=== PATIENT | female | born 1940 | race Caucasian/White ===

== ENCOUNTER 2018-06-18 13:02 | Inpatient (IN) | payer MEDICAID ==
[2018-06-18 14:01] LABS: MODE ROOM AIR; MetHgb Venous 0.2 %; Sample Type Blood venous; Site VENOUS LINE; Venous COHb 0.7 %; Venous Fraction OxyHgb 54.3 %; Venous Oxygen Sat 54.8 mmHG (55.0-75.0); Venous Total Hemglobin 11.5 g/dl
[2018-06-18] MEDS: SOD CHLORIDE 0.9% 780 ML IV (14:06)
[2018-06-18 14:07] LABS: ADD MAN DIFF? NO
[2018-06-18 14:09] LABS: BASOPHIL # 0.1 10^3/ul (0.0-0.1); BASOPHILS % 0.5 % (0.0-2.0); EOSINOPHILS # 0.2 10^3/ul (0.0-0.5); EOSINOPHILS % 1.9 % (0.0-7.0); HEMATOCRIT 31.6 % (37.0-47.0); HEMOGLOBIN 10.4 g/dl (12.0-16.0); LYMPHOCYTES # 3.9 10^3/ul (0.8-2.9); MEAN CORPUSCULAR HGB CONC 32.9 g/dl (32.0-37.0); MEAN CORPUSCULAR VOLUME 85.2 fl (82.0-101.0); MEAN PLATELET VOLUME 12.5 fl (7.4-10.4); MONOCYTES % 10.1 % (0.0-11.0); NEUTROPHIL # 4.8 10^3/ul (1.6-7.5); NEUTROPHILS % 48.1 % (39.0-77.0); PLATELET COUNT 179 10^3/UL (140-415); RED BLOOD COUNT 3.71 10^6/ul (4.20-5.40); RED CELL DISTRIBUTION WIDTH 12.8 % (11.5-14.5)
[2018-06-18 14:26] LABS: ADD UMIC YES; UR ASCORBIC ACID 20 mg/dL (NEGATIVE); UR BACTERIA FEW /HPF (NONE SEEN); UR BILIRUBIN (Dip) NEGATIVE (NEGATIVE); UR BLOOD (Dip) NEGATIVE (NEGATIVE); UR CLARITY SLIGHTLY CLOUDY (CLEAR); UR COLOR YELLOW (YELLOW); UR GLUCOSE (Dip) 3+ mg/dL (NEGATIVE); UR KETONES (Dip) NEGATIVE (NEGATIVE); UR LEUKOCYTE ESTERASE (Dip) 1+ Leu/ul (NEGATIVE); UR MUCUS FEW /HPF (NONE SEEN); UR NITRITE (Dip) NEGATIVE (NEGATIVE); UR RBC 2 /HPF (0-5); UR SQUAMOUS EPITHELIAL CELL FEW /HPF (FEW); UR TOTAL PROTEIN (Dip) 2+ mg/dl (NEGATIVE); UR UROBILINOGEN (Dip) NEGATIVE (NEGATIVE); UR WBC 15 /HPF (0-5)
[2018-06-18 14:28] LABS: INR 0.88; PT RATIO 0.9
[2018-06-18 14:29] LABS: PARTIAL THROMBOPLASTIN TIME 24.1 Sec (23.0-35.0)
[2018-06-18 14:30] LABS: HEMOGLOBIN A1C 13.3 % (0-5.9)
[2018-06-18 14:30] LABS: ALANINE AMINOTRANSFERASE 14 IU/L (13-69); ALBUMIN/GLOBULIN RATIO 0.95; ALKALINE PHOSPHATASE 104 IU/L (42-121); ANION GAP 10 (5-13); ASPARTATE AMINO TRANSFERASE 24 IU/L (15-46); BLOOD UREA NITROGEN 38 mg/dl (7-20); CALCIUM 9.8 mg/dl (8.4-10.2); CARBON DIOXIDE 31 mmol/L (21-31); CHLORIDE 101 mmol/L (97-110); CHOL/HDL RATIO 4.2 RATIO; CHOLESTEROL 116 mg/dl (100-200); CREATININE 2.42 mg/dl (0.44-1.00); GLUCOSE 281 mg/dl (70-220); HDL CHOLESTEROL 27 mg/dl (33-92); LDL CHOLESTEROL,CALCULATED 48 mg/dl; PHOSPHORUS 3.6 mg/dl (2.5-4.9); POTASSIUM 5.4 mmol/L (3.5-5.1); SODIUM 142 mmol/L (135-144); TOTAL PROTEIN 8.2 g/dl (6.1-8.1); TRIGLYCERIDES 205 mg/dl (0-149)
[2018-06-18 14:40] LABS: TROPONIN-I < 0.012 ng/ml (0.000-0.120)
[2018-06-18 14:44] LABS: AMPHETAMINE/METHAMPHETAMINE Negative (NEGATIVE); BARBITURATES Negative (NEGATIVE); BENZODIAZEPINES Negative (NEGATIVE); CANNABINOIDS Negative (NEGATIVE); COCAINE Negative (NEGATIVE); OPIATES Negative (NEGATIVE)
[2018-06-18] MEDS: ASPIRIN 81 MG TAB PO (15:21)
[2018-06-18] MEDS ORDERED: GLUCOSE GEL 15 GRAM TUBE PO ×2 (16:00)
[2018-06-18] MEDS ORDERED: GLUCOSE GEL 15 GRAM TUBE BUCCAL (16:00)
[2018-06-18] MEDS ORDERED: ACETAMINOPHEN 325 MG TAB PO (16:00)
[2018-06-18] MEDS ORDERED: DEXTROSE 50% 50 ML SYRINGE IV ×2 (16:00)
[2018-06-18] MEDS ORDERED: GLUCAGON 1 MG INJ IM (16:00)
[2018-06-18] MEDS ORDERED: ONDANSETRON 4 MG INJ IV (16:00)
[2018-06-18] MEDS ORDERED: NACL 0.9% 3 ML SYG IV (16:30)
[2018-06-18] MEDS: INSULIN ASPART [NOVOLOG] 3 ML PEN SC ×3 (18:48→20:46)
[2018-06-18] MEDS: ATORVASTATIN 10 MG TAB PO (20:39)
[2018-06-18] MEDS: INSULIN GLARGINE [LANTus] (100 UNITS/ML) SYG SC (20:46)
[2018-06-19 05:53] LABS: ADD MAN DIFF? NO
[2018-06-19 06:02] LABS: WHITE BLOOD COUNT 7.8 10^3/ul (4.8-10.8)
[2018-06-19 06:02] LABS: ABNORMAL IP MESSAGE 1; BASOPHIL # 0.1 10^3/ul (0.0-0.1); BASOPHILS % 0.6 % (0.0-2.0); EOSINOPHILS # 0.2 10^3/ul (0.0-0.5); EOSINOPHILS % 2.4 % (0.0-7.0); HEMATOCRIT 29.2 % (37.0-47.0); HEMOGLOBIN 9.7 g/dl (12.0-16.0); LYMPHOCYTES # 2.9 10^3/ul (0.8-2.9); LYMPHOCYTES % 36.9 % (15.0-51.0); MEAN CORPUSCULAR HGB CONC 33.2 g/dl (32.0-37.0); MEAN CORPUSCULAR VOLUME 84.4 fl (82.0-101.0); MEAN PLATELET VOLUME 13.2 fl (7.4-10.4); MONOCYTE # 0.8 10^3/ul (0.3-0.9); MONOCYTES % 10.7 % (0.0-11.0); NEUTROPHIL # 3.8 10^3/ul (1.6-7.5); NEUTROPHILS % 49.1 % (39.0-77.0); PLATELET COUNT 165 10^3/UL (140-415); RED BLOOD COUNT 3.46 10^6/ul (4.20-5.40)
[2018-06-19 06:23] LABS: ALANINE AMINOTRANSFERASE 13 IU/L (13-69); ALBUMIN 3.3 g/dl (3.3-4.9); ALBUMIN/GLOBULIN RATIO 0.89; ALKALINE PHOSPHATASE 91 IU/L (42-121); ANION GAP 6 (5-13); ASPARTATE AMINO TRANSFERASE 24 IU/L (15-46); BLOOD UREA NITROGEN 30 mg/dl (7-20); CALCIUM 9.3 mg/dl (8.4-10.2); CARBON DIOXIDE 28 mmol/L (21-31); CHLORIDE 104 mmol/L (97-110); CREATININE 1.97 mg/dl (0.44-1.00); GLUCOSE 322 mg/dl (70-220); POTASSIUM 4.6 mmol/L (3.5-5.1); SODIUM 138 mmol/L (135-144)
[2018-06-19 06:26] LABS: POSITIVE DIFF @See below
[2018-06-19 06:38] LABS: IRON 66 ug/dl (35-150)
[2018-06-19 06:42] LABS: CREATININE,URINE RANDOM 36.51 mg/dl (20-320)
[2018-06-19 06:42] LABS: SODIUM,URINE RANDOM 36 mmol/L (30-90)
[2018-06-19 06:47] LABS: % IRON SATURATION 26 % SAT (22-52); TOTAL IRON BINDING CAPACITY 253 ug/dl (241-421)
[2018-06-19 07:07] LABS: HEMOGLOBIN A1C 13.4 % (0-5.9)
[2018-06-19] MEDS: ESCITALOPRAM 10 MG TAB PO (08:06)
[2018-06-19] MEDS: PANTOPRAZOLE SODIUM 20 MG TABEC PO (08:07)
[2018-06-19] MEDS: INSULIN ASPART [NOVOLOG] 3 ML PEN SC ×8 (08:16→23:16)
[2018-06-19] MEDS: ENOXAPARIN 30 MG/0.3 ML SYG SC (08:31)
[2018-06-19] MEDS: hydrALAzine 20 MG INJ IV ×2 (12:53→21:13)
[2018-06-19] MEDS: ATORVASTATIN 10 MG TAB PO (21:12)
[2018-06-19] MEDS: INSULIN GLARGINE [LANTus] (100 UNITS/ML) SYG SC (21:57)
[2018-06-20] MEDS: HYDROCODONE/APAP (5/325) TAB PO (02:34)
[2018-06-20 05:49] LABS: ANION GAP 10 (5-13); BLOOD UREA NITROGEN 30 mg/dl (7-20); CALCIUM 9.2 mg/dl (8.4-10.2); CARBON DIOXIDE 27 mmol/L (21-31); CHLORIDE 101 mmol/L (97-110); CREATININE 2.05 mg/dl (0.44-1.00); GLUCOSE 285 mg/dl (70-220); POTASSIUM 4.5 mmol/L (3.5-5.1); SODIUM 138 mmol/L (135-144)
[2018-06-20] MEDS: PANTOPRAZOLE SODIUM 20 MG TABEC PO (05:55)
[2018-06-20] MEDS: INSULIN ASPART [NOVOLOG] 3 ML PEN SC ×4 (08:00→12:16)
[2018-06-20] MEDS: ESCITALOPRAM 10 MG TAB PO (08:05)
[2018-06-20] MEDS: ENOXAPARIN 30 MG/0.3 ML SYG SC (08:11)
== END 2018-06-20 14:41 | disposition home or self-care (01) | DRG 639 ==
LOC: E/R 13:02 → 6WM 15:33
DX: E11.65 Type 2 diabetes mellitus with hyperglycemia (principal); H49.00 Third [oculomotor] nerve palsy, unspecified eye; Z79.82 Long term (current) use of aspirin; Z79.4 Long term (current) use of insulin; E11.22 Type 2 diabetes mellitus with diabetic chronic kidney disease; N18.9 Chronic kidney disease, unspecified
CPT/HCPCS: 36415; 70450; 70543; 70553; 71045; 76775; 80048; 80053; 80061; 80307; 81001; 82728; 82803; 82962; 83036; 83540; 83735; 84100; 84155; 84300; 84484; 85025; 85610; 85730; 92610; 93005; 93306; 99285-25